=== PATIENT | female | born 1980 | race Caucasian/White ===

== ENCOUNTER → 2016-10-18 | Outpatient (REF) | payer OTHER ==
[~2016-10-18] MED LIST: CITA10TA5 PO; CLEO300C2 PO; HYDR1TAB97 PO; SMZ-800T PO; VITAPRTA PO
[2016-10-18 09:05] LABS: BASO # 0.1 K/mm3 (0.0-0.2); BASO % 0.3 % (0.0-1.0); EOS # 0.3 K/mm3 (0.0-0.50); EOS % 0.9 % (0.0-3.0); LYMPH # 3.1 K/mm3 (1.5-4.5); MEAN CORPUSCULAR HEMOGLOBIN 31.9 pg (27.0-33.0); MEAN CORPUSCULAR HGB CONC 34.4 g/dl (32.0-36.5); MEAN CORPUSCULAR VOLUME 92.5 fl (80.0-96.0); MONO # 0.6 K/mm3 (0.0-0.8); MONO % 1.9 % (0.0-5.0); NEUTROPHILS # 26.9 K/mm3 (1.8-7.7); NEUTROPHILS % 86.1 % (36.0-66.0); RED CELL DISTRIBUTION WIDTH 13.9 % (11.5-14.5)
[2016-10-18 09:08] LABS: WHITE BLOOD COUNT 31.2 K/mm3 (4.0-10.0)
== END ==
LOC: M LAB REF 08:54
PROVIDERS: ATTEND Internal Medicine Medical Oncology
DX: R23.3 Spontaneous ecchymoses (principal)

== ENCOUNTER → 2016-10-19 | Outpatient (CLI) | payer OTHER ==
[2016-10-19 09:30] LABS: ESTRADIOL 2466.5 PG/ML
[2016-10-19 09:56] LABS: PROGESTERONE 171.4 NG/ML
== END ==
LOC: M LAB 08:05
PROVIDERS: ATTEND Obstetrics & Gynecology Reproductive Endocrinology
DX: Z32.01 Encounter for pregnancy test, result positive (principal)

== ENCOUNTER → 2017-12-20 | Outpatient (CLI) | payer OTHER ==
[2017-12-20 10:12] LABS: PROGESTERONE 0.5 NG/ML
[2017-12-20 10:13] LABS: ESTRADIOL 126.4 PG/ML; LUTEINIZING HORMONE 5.8 mIU/mL
== END ==
LOC: M RAD 07:05
DX: E28.9 Ovarian dysfunction, unspecified (principal)

== ENCOUNTER → 2017-12-23 | Outpatient (CLI) | payer OTHER ==
[2017-12-23 10:35] LABS: PROGESTERONE 0.5 NG/ML
[2017-12-23 10:35] LABS: ESTRADIOL 171.1 PG/ML
== END ==
LOC: M RAD 08:40
DX: E28.9 Ovarian dysfunction, unspecified (principal); N83.02 Follicular cyst of left ovary
CPT/HCPCS: 76830

== ENCOUNTER → 2017-12-31 | Outpatient (CLI) | payer OTHER ==
[2017-12-31 09:17] LABS: PROGESTERONE 48.2 NG/ML
== END ==
LOC: M LAB 07:52
DX: E28.9 Ovarian dysfunction, unspecified (principal)

== ENCOUNTER → 2018-01-07 | Outpatient (CLI) | payer OTHER ==
[2018-01-07 08:19] LABS: HCG, SERUM QUANTITATIVE < 1.0 MIU/ML
[2018-01-07 11:53] LABS: PROGESTERONE 18.2 NG/ML
== END ==
LOC: M LAB 07:33
DX: E28.9 Ovarian dysfunction, unspecified (principal)
CPT/HCPCS: 84702

== ENCOUNTER → 2018-03-03 | Outpatient (CLI) | payer OTHER ==
[2018-03-03 08:44] LABS: HCG, SERUM QUANTITATIVE 118 MIU/ML
[2018-03-03 09:35] LABS: PROGESTERONE 77.6 NG/ML
== END ==
LOC: M LAB 07:49
DX: E28.9 Ovarian dysfunction, unspecified (principal)
CPT/HCPCS: 84702

== ENCOUNTER → 2018-06-03 | Outpatient (REF) | payer OTHER ==
[2018-06-03 18:34] LABS: BASO % 0.4 % (0.0-1.0); EOS # 0.2 10^3/uL (0.0-0.50); EOS % 2.3 % (0.0-3.0); HEMATOCRIT 35.2 % (36.0-47.0); HEMOGLOBIN 11.8 g/dl (12.0-15.5); IMMATURE GRANULOCYTE % 0.3 % (0-3.0); LYMPH # 1.6 10^3/uL (1.5-4.5); LYMPH % 17.3 % (24.0-44.0); MEAN CORPUSCULAR HEMOGLOBIN 30.9 pg (27.0-33.0); MEAN CORPUSCULAR HGB CONC 33.5 g/dl (32.0-36.5); MEAN CORPUSCULAR VOLUME 92.1 fl (80.0-96.0); MONO # 0.4 10^3/uL (0.0-0.8); MONO % 4.2 % (0.0-5.0); NEUTROPHILS # 6.8 10^3/uL (1.8-7.7); NEUTROPHILS % 75.5 % (36.0-66.0); PLATELET COUNT, AUTOMATED 303 10^3/uL (150-450); RED BLOOD COUNT 3.82 10^6/uL (4.00-5.40); RED CELL DISTRIBUTION WIDTH 13.4 % (11.5-14.5); WHITE BLOOD COUNT 9.1 10^3/uL (4.0-10.0)
[2018-06-03 19:16] LABS: ESTIMATED AVERAGE GLUCOSE 71 MG/DL (60-110); HEMOGLOBIN A1c 4.1 %
[2018-06-03 19:32] LABS: ALBUMIN 2.9 GM/DL (3.2-5.2); ALBUMIN/GLOBULIN RATIO 0.85 (1.00-1.93); ALKALINE PHOSPHATASE 64 U/L (45-117); ALT/SGPT 16 U/L (12-78); ANION GAP 9 MEQ/L (8-16); AST/SGOT 13 U/L (7-37); BILIRUBIN,TOTAL 0.3 MG/DL (0.2-1.0); BLOOD UREA NITROGEN 7 MG/DL (7-18); CALCIUM LEVEL 8.2 MG/DL (8.5-10.1); CARBON DIOXIDE LEVEL 25 MEQ/L (21-32); CHLORIDE LEVEL 106 MEQ/L (98-107); CHOLESTEROL LEVEL 193 MG/DL (<200); CHOLESTEROL RISK RATIO 3.938 (<5); CREATININE FOR GFR 0.54 MG/DL (0.55-1.30); FREE T4 1.13 NG/DL (0.76-1.46); GLOMERULAR FILTRATION RATE > 60.0 (>60); GLUCOSE, FASTING 77 MG/DL (70-100); HDL CHOLESTEROL 49 MG/DL (>40); LDL CHOLESTEROL 81.6 MG/DL (<100); NON-HDL-C 144 MG/DL; POTASSIUM SERUM 4.1 MEQ/L (3.5-5.1); SODIUM LEVEL 140 MEQ/L (136-145); THYROID STIMULATING HORMONE 0.796 uIU/ML (0.358-3.740); TOTAL PROTEIN 6.3 GM/DL (6.4-8.2); TRIGLYCERIDES LEVEL 312 MG/DL (<150)
== END ==
LOC: M SFHCPLAZ 15:15
DX: F41.1 Generalized anxiety disorder (principal); Z13.228 Encounter for screening for other metabolic disorders; E78.5 Hyperlipidemia, unspecified

== ENCOUNTER → 2019-02-13 | Outpatient (REF) | payer OTHER ==
[~2019-02-13] MED LIST changes: +HYDR-3713 PO; -HYDR1TAB97 PO; -SMZ-800T PO; +SULF1TAB93 PO
[2019-02-13 21:52] LABS: RUBELLA IgG QUALITATIVE IMMUNE (IMMUNE)
[2019-02-17 00:07] LABS: MUMPS VIRUS IgG ANTIBODY 75.5 AU/mL (Immune >10.9)
[2019-02-18 00:07] LABS: RUBEOLA IgG ANTIBODY >300.0 AU/mL (Immune >29.9)
== END ==
LOC: M SFHCLERA 16:53
PROVIDERS: ATTEND Nurse Practitioner Family
DX: Z11.59 Encounter for screening for other viral diseases (principal)

== ENCOUNTER → 2019-10-16 | Outpatient (CLI) | payer OTHER ==
--- NOTE | 2019-10-16 14:53 | REPPI ---
Clinical: Pain Technique: AP, lateral, bilateral oblique and sunrise views left knee . Findings: The osseous structures and joint spaces are intact and normal. There is no evidence for acute fracture or dislocation. No joint effusion is appreciated. Surrounding soft tissues are unremarkable. No subcutaneous emphysema or radiodense foreign body. Impression: Normal examination. No acute fracture or dislocation. Electronically Signed by Victor M Stephenson MD 10/16/2019 02:45 P
[2019-10-16 15:52] LABS: APPEARANCE, URINE HAZY (CLEAR); BACTERIA, URINE AUTO NEGATIVE (NEGATIVE); BILIRUBIN, URINE AUTO NEGATIVE (NEGATIVE); BLOOD, URINE BLOOD 2+ (NEGATIVE); COLOR, URINE YELLOW (YELLOW); GLUCOSE, URINE (UA) AUTO NEGATIVE (NEGATIVE); KETONE, URINE AUTO NEGATIVE (NEGATIVE); LEUKOCYTE ESTERASE, URINE AUTO 2+ (NEGATIVE); MUCUS, URINE SMALL (NEGATIVE); NITRITE, URINE AUTO NEGATIVE (NEGATIVE); PROTEIN, URINE AUTO NEGATIVE (NEGATIVE); RBC, URINE AUTO 10 /HPF (0-3); SPECIFIC GRAVITY URINE AUTO 1.014 (1.002-1.035); SQUAMOUS EPITHELIAL CELL UR AU 1 /HPF (0-6); UROBILINOGEN, URINE AUTO 0.2 mg/dL (0.0-2.0); WBC, URINE AUTO 62 /HPF (0-3)
[2019-10-16 17:42] LABS: ALT/SGPT 25 U/L (12-78); BILIRUBIN,TOTAL 0.6 MG/DL (0.2-1.0); BLOOD UREA NITROGEN 14 MG/DL (7-18); CALCIUM LEVEL 9.2 MG/DL (8.5-10.1); CARBON DIOXIDE LEVEL 25 MEQ/L (21-32); CHLORIDE LEVEL 106 MEQ/L (98-107); CHOLESTEROL LEVEL 193 MG/DL (<200); CHOLESTEROL RISK RATIO 4.948 (<5); CREATININE FOR GFR 0.79 MG/DL (0.55-1.30); GLOMERULAR FILTRATION RATE > 60.0 (>58); GLUCOSE, FASTING 87 MG/DL (70-100); HDL CHOLESTEROL 39 MG/DL (>40); LDL CHOLESTEROL 102 MG/DL (<100); NON-HDL-C 154 MG/DL; POTASSIUM SERUM 4.3 MEQ/L (3.5-5.1); SODIUM LEVEL 139 MEQ/L (136-145); TOTAL PROTEIN 7.3 GM/DL (6.4-8.2); TRIGLYCERIDES LEVEL 262 MG/DL (<150)
[2019-10-16 17:50] LABS: HEMOGLOBIN A1c 5.2 %
== END ==
LOC: M PLAIMG 14:13
PROVIDERS: ATTEND Nurse Practitioner Family
DX: M79.605 Pain in left leg (principal); Z13.228 Encounter for screening for other metabolic disorders; R35.0 Frequency of micturition

== ENCOUNTER → 2019-10-23 | Outpatient (CLI) | payer OTHER ==
--- NOTE | 2019-10-23 08:36 | REP ---
Left lower extremity Duplex Doppler venous ultrasound: Real time compression and duplex Doppler interrogation of the left lower extremity deep venous system is performed. The left common femoral, superficial femoral and popliteal veins are fully compressible with transducer pressure and demonstrate normal spontaneous and phasic flow, without evidence of deep venous thrombosis. Impression: No evidence of deep venous thrombosis of the left lower extremity femoral popliteal venous system. Electronically Signed by Gregory Reese MD 10/23/2019 08:28 A
== END ==
LOC: M RAD 07:44
PROVIDERS: ATTEND Nurse Practitioner Family
DX: M79.605 Pain in left leg (principal)

== ENCOUNTER → 2019-11-06 | Outpatient (CLI) | payer OTHER ==
--- NOTE | 2019-11-06 15:26 | REP ---
BILATERAL SCREENING DIGITAL MAMMOGRAM WITHOUT 3D TOMOSYNTHESIS: There are no palpable abnormalities or other breast complaints. The the patient states she is not had a clinical breast examination in over a year. The Tyrer-Cuzick Score is: 16.0% . There are no comparisons, baseline study. The There are scattered areas of fibroglandular density. There is a focal asymmetric density in the upper outer quadrant of the left breast. This is of uncertain significance in the absence of comparison studies. Therefore, I would recommend the patient return for spot compression views to further evaluate the ultrasound should be performed based on findings on the spot compression views. Impression: BIRADS/ACR category 0 mammogram. Incomplete. Need additional imaging evaluation and / or prior mammograms for comparison. Recommendation: The the patient should return for spot compression views of the upper outer quadrant of the left breast. Ultrasound should be performed based on the findings on the spot compression views. This mammogram was interpreted with the aid of a FDA approved computer-aided detection system. A. Negative mammogram reports should not delay biopsy if a dominant or clinically suspicious mass is present. B. Not all breast cancers are identified by mammography or tomosynthesis. C. Adenosis and dense breasts may obscure an underlying neoplasm. Patient letter M0. Electronically Signed by Gregory Dominique MD 11/06/2019 03:18 P
== END ==
LOC: M WHC 12:59
PROVIDERS: ATTEND Nurse Practitioner Family
DX: Z12.31 Encounter for screening mammogram for malignant neoplasm of breast (principal)

== ENCOUNTER → 2019-12-07 | Outpatient (CLI) | payer OTHER ==
--- NOTE | 2019-12-07 09:52 | REP ---
DIGITAL DIAGNOSTIC UNILATERAL LEFT BREAST MAMMOGRAPHY WITH CAD, 3D TOMOGRAPHY, AND TARGETED LEFT BREAST SONOGRAPHY: FINDINGS: Screening mammography 11/06/2019 was BIRADS category 0 because of asymmetric density upper outer quadrant left breast. FINDINGS: Magnified focal spot compression CC, MLO, and true mediolateral views were obtained. A standard true mediolateral view with tomography is acquired. These views demonstrate that the area in question appears to compress as normal breast parenchyma. It is slightly more prominent than the breast parenchyma in the upper outer quadrant of the contralateral breast. No mass-like properties or spiculation is seen. No microcalcifications are observed. No worrisome skin change is seen. SONOGRAPHIC FINDINGS: Focused upper outer quadrant left breast sonography demonstrates a normal 9 mm lymph node near the axilla. Heterogeneous fibroglandular background echotexture is seen. No cyst, mass, acoustic shadowing or architectural distortion is seen. IMPRESSION: BIRADS category 3 probably benign findings. Repeat left breast mammography recommended in 6 months with targeted left breast sonography. This mammogram was interpreted with the aid of an FDA-approved computer-aided detection system. The patient letter being requested is M3 .
== END ==
LOC: M WHC 07:59
PROVIDERS: ATTEND Nurse Practitioner Family
DX: R92.8 Other abnormal and inconclusive findings on diagnostic imaging of breast (principal)

== ENCOUNTER → 2020-03-26 | Outpatient (REF) | payer OTHER | LOC: M SFHCLERA 10:36 | PROVIDERS: ATTEND Physician Assistant | DX: R30.0 Dysuria (principal) | CPT/HCPCS: 81002; 87088; 87186; G0463 ==

== ENCOUNTER → 2020-05-10 | Outpatient (REF) | payer OTHER | LOC: M SFHCLUC 17:00 | PROVIDERS: ATTEND Nurse Practitioner Family | DX: R39.9 Unspecified symptoms and signs involving the genitourinary system (principal) ==

== ENCOUNTER → 2020-05-31 | Outpatient (REF) | payer OTHER ==
[2020-07-19 10:49] LABS: BASO # 0.1 10^3/uL (0.0-0.2); BASO % 0.7 % (0.0-1.0); EOS # 0.1 10^3/uL (0.0-0.5); EOS % 1.3 % (0.0-3.0); HEMOGLOBIN 14.6 g/dl (12.0-15.5); LYMPH # 1.6 10^3/uL (1.5-5.0); MEAN CORPUSCULAR HEMOGLOBIN 30.6 pg (27.0-33.0); MEAN CORPUSCULAR HGB CONC 33.2 g/dl (32.0-36.5); MEAN CORPUSCULAR VOLUME 92.2 fl (80.0-96.0); MONO # 0.4 10^3/uL (0.0-0.8); MONO % 5.8 % (0.0-5.0); NEUTROPHILS # 4.9 10^3/uL (1.5-8.5); NEUTROPHILS % 68.9 % (36.0-66.0); PLATELET COUNT, AUTOMATED 357 10^3/uL (150-450); RED BLOOD COUNT 4.77 10^6/uL (4.00-5.40); WHITE BLOOD COUNT 7.1 10^3/uL (4.0-10.0)
[2020-08-21 08:38] LABS: ALT/SGPT 30 U/L (12-78); BLOOD UREA NITROGEN 10 MG/DL (7-18); CALCIUM LEVEL 9.1 MG/DL (8.5-10.1); CARBON DIOXIDE LEVEL 30 MEQ/L (21-32); CHLORIDE LEVEL 106 MEQ/L (98-107); CHOLESTEROL LEVEL 188 MG/DL (<200); CHOLESTEROL RISK RATIO 4.272 (<5); CREATININE FOR GFR 0.91 MG/DL (0.55-1.30); FREE T4 1.22 NG/DL (0.76-1.46); GLOMERULAR FILTRATION RATE > 60.0 (>58); GLUCOSE, FASTING 92 MG/DL (70-100); HDL CHOLESTEROL 44 MG/DL (>40); HEMOGLOBIN A1c 5.1 %; LDL CHOLESTEROL 114 MG/DL (<100); NON-HDL-C 144 MG/DL; POTASSIUM SERUM 4.4 MEQ/L (3.5-5.1); SODIUM LEVEL 140 MEQ/L (136-145); THYROID STIMULATING HORMONE 0.997 uIU/ML (0.358-3.740); TRIGLYCERIDES LEVEL 152 MG/DL (<150)
== END ==
LOC: M SFHCPLAZ 11:44
PROVIDERS: ATTEND Physician Assistant Medical
DX: I10 Essential (primary) hypertension (principal); E66.9 Obesity, unspecified; Z13.220 Encounter for screening for lipoid disorders; F41.9 Anxiety disorder, unspecified
CPT/HCPCS: 36415; 80053; 80061; 83036; 84439; 84443; 85025; G0463

== ENCOUNTER → 2020-06-23 | Outpatient (CLI) | payer OTHER ==
--- NOTE | 2020-07-14 12:46 | REP ---
SIX MONTH FOLLOW-UP LEFT BREAST MAMMOGRAM AND ULTRASOUND HISTORY: Asymmetric density lateral left breast. No family history of breast cancer. [facility] lifetime risk of breast cancer is 16.0%. TECHNIQUE: MLO and CC views of the left breast are performed. FINDINGS: There is moderate scattered fibroglandular density predominantly in the upper outer quadrant of the left breast. This is unchanged compared to the prior study of 11/06/2019. There is no new mass or architectural distortion. The appearance of the mammogram is stable. Real-time sonographic evaluation of the left breast performed laterally at the site of the mild asymmetric fibroglandular density between 2 and 4 o'clock. There is no sonographic abnormality at that location. Incidentally noted once again is a lymph node in the left axillary region measuring 1.1 x 1.0 x 0.6 cm. This is morphologically unremarkable with a fatty hilum noted and normal short axis dimension. IMPRESSION: ACR 3 probably benign mammogram. Stable mild asymmetric fibroglandular density upper outer quadrant left breast. No change since prior study of 11/06/2019. Ultrasound of the lateral left breast is also unchanged. Recommend follow-up bilateral mammogram in 10/2020. This mammogram was interpreted with the aid of an FDA approved computer-aided detection system. Last clinical breast exam is reportedly over one year ago. Patient letter 3. MTDD
== END ==
LOC: M WHC 08:28
PROVIDERS: ATTEND Nurse Practitioner Family
DX: N63.21 Unspecified lump in the left breast, upper outer quadrant (principal)
CPT/HCPCS: 76642; 77065; G0279

== ENCOUNTER → 2020-07-04 | Outpatient (REF) | payer OTHER | LOC: M SFHCWAGY 13:06 | PROVIDERS: ATTEND Nurse Practitioner Women's Health | DX: Z12.4 Encounter for screening for malignant neoplasm of cervix (principal) | CPT/HCPCS: 87624; G0123 ==

== ENCOUNTER → 2020-11-07 | Outpatient (CLI) | payer OTHER ==
--- NOTE | 2020-11-07 09:25 | REPMRS ---
Patient History The patient states she has not had a clinical breast exam in over a year. Family history of endometrial cancer at age 50 in maternal grandmother. Diagnostic Bilateral Mammo: November 07, 2020 - Exam #: [id number] Special views. Technologist: Mara Díaz, Technologist Prior study comparison: June 23, 2020, left breast diagnostic unilateral mammo performed at [facility]. June 23, 2020, left breast ultrasound unilat limited performed at [facility]. December 07, 2019, left breast diagnostic unilateral mammo performed at [facility]. December 07, 2019, left breast ultrasound unilat limited performed at [facility]. November 06, 2019, bilateral digital woman screen mammo performed at [facility]. FINDINGS: There are scattered fibroglandular densities. The Volpara volumetric breast density category is:B. There has been no change in the area of the asymmetric density previously identified in the upper outer quadrant of the left breast in the interval since the November 06, 2021 prior mammogram. There has been no other change in the appearance of the mammogram from the prior studies. There is a mild amount of scattered fibroglandular density which is fairly symmetric. There is no interval development of dominant mass, architectural distortion, or grouped microcalcification suggestive of malignancy. 3-D tomosynthesis shows no additional findings. Assessment: BI-RADS/ACR Category 3 mammogram. Probably Benign Findings. Recommendation Follow-up diagnostic mammogram of the left breast in 6 months. Routine screening mammogram of both breasts in 1 year (for women over age 40). This patient's [facility] Lifetime Breast Cancer Risk is estimated at 15.8 %. This mammogram was interpreted with the aid of an FDA-approved computer-aided dectection system. Electronically Signed By: Valeriy Little MD 11/07/20 0925
== END ==
LOC: M WHC 08:19
PROVIDERS: ATTEND Nurse Practitioner Family
DX: R92.8 Other abnormal and inconclusive findings on diagnostic imaging of breast (principal); N63.21 Unspecified lump in the left breast, upper outer quadrant
CPT/HCPCS: 77066; G0279

== ENCOUNTER → 2020-12-26 | Outpatient (REF) | payer OTHER | LOC: M LAB REF 16:22 | PROVIDERS: ATTEND Physician Assistant | DX: J02.9 Acute pharyngitis, unspecified (principal) ==

== ENCOUNTER → 2021-05-19 | Outpatient (CLI) | payer OTHER ==
[~2021-05-19] MED LIST changes: +BACTDSTA PO; -SULF1TAB93 PO
--- NOTE | 2021-05-19 11:24 | REP ---
INDICATION: 6 MO F/U LEFT BREAST/FIBROGLANDULAR DENS. COMPARISON: Multiple TECHNIQUE: Diagnostic digital left mammogram was obtained using 2D and 3D modalities along with spot compression views upper outer quadrant over the region of interest indicated by prior mammograms. By history, the patient has no complaints of a palpable breast abnormality or other significant breast complaints. The only prior DBT images to review are from the 11/07/2020 mammogram. Diagnostic ultrasonography left breast upper outer quadrant was also obtained and compared to the prior exams. FINDINGS: The left breast is unchanged in size and shape. Scattered dense heterogenous fibroglandular elements are again seen in a stable appearing pattern. There are no hitesh soft tissue densities or spiculated masses. There is no internal architectural distortion. There are no suspicious calcifications. There is no skin thickening or nipple retraction. Diagnostic spot compression views left breast upper outer quadrant show no abnormalities. Diagnostic ultrasonography left breast upper outer quadrant shows no cystic or solid masses. The Volpara volumetric breast density pattern is b. IMPRESSION: BIRADS/ACR category 2 benign findings. There is no evidence of malignant alteration of the left breast.. This patient's Tyrer-Cuzick lifetime breast cancer risk assessment score is 15.8%. This mammogram was interpreted with the aid of an FDA-approved computer-aided detection system. The patient states she had a clinical breast exam in over a year. The patient letter being requested is M1. RECOMMENDATION: Repeat screening mammography recommended 1 year (for women over 40). <Electronically signed by Thaddeus Barger > 05/19/21 [id number]
== END ==
LOC: M WHC 08:17
PROVIDERS: ATTEND Nurse Practitioner Family
DX: N64.59 Other signs and symptoms in breast (principal)
CPT/HCPCS: 76642; 77065; G0279

== ENCOUNTER → 2021-10-30 | Outpatient (CLI) | payer OTHER ==
[~2021-10-30] MED LIST changes: -CITA10TA5 PO; +CITA10TA7 PO
[2021-10-30 15:24] LABS: ALBUMIN 3.5 GM/DL (3.2-5.2); ALT/SGPT 21 U/L (12-78); BILIRUBIN,TOTAL 0.3 MG/DL (0.2-1.0); BLOOD UREA NITROGEN 12 MG/DL (7-18); CARBON DIOXIDE LEVEL 27 MEQ/L (21-32); CHLORIDE LEVEL 110 MEQ/L (98-107); CHOLESTEROL LEVEL 162 MG/DL (<200); CHOLESTEROL RISK RATIO 3.767 (<5); CREATININE FOR GFR 0.75 MG/DL (0.55-1.30); GLOMERULAR FILTRATION RATE > 60.0 (>58); GLUCOSE, FASTING 120 MG/DL (70-100); HDL CHOLESTEROL 43 MG/DL (>40); LDL CHOLESTEROL 80 MG/DL (<100); NON-HDL-C 119 MG/DL; POTASSIUM SERUM 4.1 MEQ/L (3.5-5.1); SODIUM LEVEL 141 MEQ/L (136-145); TOTAL PROTEIN 6.5 GM/DL (6.4-8.2); TRIGLYCERIDES LEVEL 196 MG/DL (<150)
[2021-10-30 15:33] LABS: BASO # 0.1 10^3/uL (0.0-0.2); BASO % 0.7 % (0.0-1.0); EOS # 0.3 10^3/uL (0.0-0.5); EOS % 4.3 % (0.0-3.0); HEMATOCRIT 39.4 % (36.0-47.0); HEMOGLOBIN 13.2 g/dl (12.0-15.5); LYMPH # 1.9 10^3/uL (1.5-5.0); LYMPH % 27.3 % (24.0-44.0); MEAN CORPUSCULAR HGB CONC 33.5 g/dl (32.0-36.5); MEAN CORPUSCULAR VOLUME 89.5 fl (80.0-96.0); MONO # 0.4 10^3/uL (0.0-0.8); MONO % 6.1 % (2.0-8.0); NEUTROPHILS # 4.3 10^3/uL (1.5-8.5); NEUTROPHILS % 61.3 % (36.0-66.0); PLATELET COUNT, AUTOMATED 317 10^3/uL (150-450); WHITE BLOOD COUNT 6.9 10^3/uL (4.0-10.0)
[2021-10-30 16:13] LABS: HEMOGLOBIN A1c 4.7 %
== END ==
LOC: M PLALAB 12:38
PROVIDERS: ATTEND Nurse Practitioner Family
DX: Z00.00 Encounter for general adult medical examination without abnormal findings (principal); E78.5 Hyperlipidemia, unspecified

== ENCOUNTER → 2021-12-12 | Outpatient (CLI) | payer OTHER ==
[2021-12-12 18:17] LABS: BASO # 0.1 10^3/uL (0.0-0.2); BASO % 0.8 % (0.0-1.0); EOS # 0.2 10^3/uL (0.0-0.5); EOS % 1.4 % (0.0-3.0); HEMATOCRIT 38.7 % (36.0-47.0); HEMOGLOBIN 12.8 g/dl (12.0-15.5); LYMPH # 2.1 10^3/uL (1.5-5.0); LYMPH % 19.8 % (24.0-44.0); MEAN CORPUSCULAR HEMOGLOBIN 29.4 pg (27.0-33.0); MEAN CORPUSCULAR HGB CONC 33.1 g/dl (32.0-36.5); MEAN CORPUSCULAR VOLUME 88.8 fl (80.0-96.0); MONO # 0.6 10^3/uL (0.0-0.8); NEUTROPHILS # 7.5 10^3/uL (1.5-8.5); NEUTROPHILS % 71.4 % (36.0-66.0); PLATELET COUNT, AUTOMATED 361 10^3/uL (150-450); RED BLOOD COUNT 4.36 10^6/uL (4.00-5.40); WHITE BLOOD COUNT 10.5 10^3/uL (4.0-10.0)
[2021-12-12 18:45] LABS: ERYTHROCYTE SEDIMENTATION RATE 31 mm/hr (0-20)
[2021-12-12 18:51] LABS: ALBUMIN 3.5 GM/DL (3.2-5.2); ALT/SGPT 25 U/L (12-78); BILIRUBIN,TOTAL 0.6 MG/DL (0.2-1.0); BLOOD UREA NITROGEN 11 MG/DL (7-18); C REACTIVE PROTEIN QUANTITATIV 3.98 MG/DL (0.00-0.30); CALCIUM LEVEL 8.9 MG/DL (8.5-10.1); CARBON DIOXIDE LEVEL 29 MEQ/L (21-32); CHLORIDE LEVEL 108 MEQ/L (98-107); GLOMERULAR FILTRATION RATE > 60.0 (>58); GLUCOSE, FASTING 88 MG/DL (70-100); POTASSIUM SERUM 3.6 MEQ/L (3.5-5.1); SODIUM LEVEL 140 MEQ/L (136-145)
== END ==
LOC: M LAB 17:18
PROVIDERS: ATTEND Nurse Practitioner Family
DX: K61.0 Anal abscess (principal)
CPT/HCPCS: 36415; 80053; 85025; 85652; 86140; G0463

== ENCOUNTER → 2021-12-13 | Outpatient (CLI) | payer OTHER ==
[~2021-12-13] MED LIST changes: +ISOVUE-370 76% 100ML VIAL As Ordered ONE
== END ==
LOC: M RAD 09:40
PROVIDERS: ATTEND Nurse Practitioner Family
DX: K61.0 Anal abscess (principal)
CPT/HCPCS: 72193; Q9967

== ENCOUNTER → 2021-12-20 | Outpatient (CLI) | payer OTHER ==
[~2021-12-20] MED LIST changes: -ISOVUE-370 76% 100ML VIAL As Ordered ONE
== END ==
LOC: M WHC 08:39
PROVIDERS: ATTEND Nurse Practitioner Family
DX: Z12.31 Encounter for screening mammogram for malignant neoplasm of breast (principal)